=== PATIENT | male | born 1965 | race Two or more races ===

== ENCOUNTER 2017-07-28 17:07 | Emergency (ER) | payer BC, OTHER ==
[~2017-07-28] VITALS: Ht 180.3 cm; Wt 77.1 kg
[2017-07-28] MEDS ORDERED: methylPREDNISolone SOD SUCC 125 MG/2 ML VL IV ONE (18:00)
[2017-07-28] MEDS ORDERED: diphenhdrAMINE HCL 50 MG/1 ML VL IV ONE (19:00)
[2017-07-28 19:20] VITALS: BP 158/98
== END 2017-07-28 19:37 | disposition home or self-care (01) ==
LOC: ER 17:16
DX: T78.40XA Allergy, unspecified, initial encounter (principal)
CPT/HCPCS: 93005; 96374; 96375; 99284; J1200; J2930